=== PATIENT | male | born 1970 | race Caucasian/White ===

== ENCOUNTER → 2018-11-22 | Day surgery (SDC) | payer BC ==
[~2018-11-22] MED LIST: ACETAMINOPHEN 325 MG TABLET PO PRN; ALBUTEROL SULFATE 2.5 MG/3 ML NEBU. NEB PRN; ATROPINE 0.5 MG/5 ML DISP.SYRIN. IV PRN; BUPIVACAINE-EPI 0.25%-1:200000 MPF 30 ML VIAL. IJ ONE; BUPIVACAINE-EPI 0.25%-1:200000 MPF 30 ML VIAL. ONE; IV RINGERS SOLUTION,LACTATED 1,000 ML IV SCH; LIDOCAINE 1%/EPI 1:200,000 PF 30 ML VIAL. ONE; LIDOCAINE 2% PF Vial for OR 5 ML VIAL. ONE; MIDAZOLAM HCL PF 2 MG/2 ML VIAL. IV PRN; ONDANSETRON PF 4 MG/2 ML VIAL. IV PRN; ONDANSETRON PF 4 MG/2 ML VIAL. ONE; PHENOL ORAL SPRAY 177ML BOTTLE. MM PRN; PROPOFOL 40 ML IV ONE; SUMA100T3 PO; diphenhydrAMINE 50 MG/ML VIAL IV PRN
--- NOTE | 2018-11-22 10:49 | PDOC4 ---
Operative Report DATE 11/22/2018 Preop Diagnosis Posterior neck mass Post-op Diagnosis Same Operation Performed Excision of posterior neck mass Dictation: Patient is a 48-year-old male is complained of enlarging mass on the posterior neck. Procedure of excision was explained to the patient detail risk benefits were also discussed including bleeding infection turned to this procedure also discussed with patient seemed to understand and gave both verbal and written consent had procedure performed. Patient was taken to the minor his room placed in left lateral Cubist position his neck was prepped and draped usual sterile fashion using ChloraPrep and area over the mass was injected with quarter percent Marcaine with epinephrine once this was anesthetized incision was made with a 15 blade scalpel was carried down through the subcutaneous tissues down to the mass appeared to be a lipoma this was excised sharply with Metzenbaum scissors. Mass was sent to pathology approximate size 5 cm. Wound was then closed in 2 layers a deep layer running 3-0 Vicryl and skin was approximate for septic and a Monocryl Mastisol Steri-Strips and a large Band-Aid were applied. Patient was positioned in for his colonoscopy which we dictated a probation Surgeon Isauro ANESTHESIA PROPOSED: LOCAL Blood Loss 5 milliliters Specimen Posterior neck mass Complications None RACHELLE MUHAMMAD MD Nov 22, 2018 10:48
--- NOTE | 2018-11-22 10:50 | DISCH ---
DISCHARGE INSTRUCTIONS-DC Condition on Discharge Condition on Discharge: Stable Activity after Discharge Activity Instructions for Disc: Activity as tolerated Diet after Discharge Diet after Discharge: Regular Wound/Incision Care Other wound/incision instructi: May shower in 24 hours Contacting the after DC Call your doctor for: If your condition worsens Follow-Up Follow up with: Dr. Muhammad in 2 weeks RACHELLE MUHAMMAD MD Nov 22, 2018 10:50
[2018-11-22 11:16] VITALS: BP 116/76
--- NOTE | 2018-11-24 22:10 | PATHOLOGY ---
[facility] Accession Number: [id number] . 01 Material submitted: . PART A: neck - POSTERIOR NECK MASS. Modifiers: posterior PART B: colon - BX AT 20 CM - COLON. Modifiers: 20 CM . 01 Clinical history: . Neck mass . 02 Diagnosis: A. "Posterior neck mass", excision: - Mature adipose tissue consistent with lipoma. . B. "BX at 20 cm-colon", biopsy: - Tubular adenoma; no high grade dysplasia. . (CLW:mm; 11/24/2018) [facility] 11/24/2018 1546 Local . 02 Electronically signed: . Vashti Faulkner MD, Pathologist NPI- [id number] . 01 Gross description: . A. The specimen is received in formalin, labeled "Fredrick Naranjo, posterior neck mass", are few irregular fragments of yellow lobulated adipose tissue covered by a thin traore-white membrane measuring 5.2 x 3.5 x 2.7 cm. Serially sectioned to show a simmons-yellow homogeneous cut surface with no discrete hemorrhage or necrosis. Representatively submitted in A1-A2. . B. The specimen is received in formalin, labeled "Fredrick Naranjo, BX at 20 cm-colon", is an irregular segment of simmons soft tissue measuring 0.5 cm in greatest dimension. Entirely submitted in B1. ([facility]; 11/23/2018) [facility] 11/23/2018 2106 Local . 02 Pathologist provided ICD-10: D17.0, D12.6 . 02 CPT . 562058, 645184 Specimen Comment: A courtesy copy of this report has been sent to Specimen Comment: [phone], . Specimen Comment: Report sent to / DR ESCAMILLA Performed at: 01 [facility] [address] [facility] [address], [place] [id number] MD Severino Olguin MD Phone: [phone] Performed at: 02 [facility] [address] [place], [place] [id number] MD Osmar Constantino MD Phone: [phone]
== END ==
LOC: SURG 09:29
PROVIDERS: ATTEND Surgery
DX: Z12.11 Encounter for screening for malignant neoplasm of colon (principal); R22.1 Localized swelling, mass and lump, neck; D12.5 Benign neoplasm of sigmoid colon; F15.90 Other stimulant use, unspecified, uncomplicated; G43.909 Migraine, unspecified, not intractable, without status migrainosus; Z86.010 Personal history of colon polyps; Z90.49 Acquired absence of other specified parts of digestive tract; Z98.890 Other specified postprocedural states
CPT/HCPCS: 21552; 45380; 88304; 88305; J2405; J2704; J3490; J7120; J2001

== ENCOUNTER → 2020-10-04 | Outpatient (CLI) | payer OTHER ==
[2018-11-22 11:16] VITALS: BP 116/76
[~2020-10-04] MED LIST changes: -ACETAMINOPHEN 325 MG TABLET PO PRN; -ALBUTEROL SULFATE 2.5 MG/3 ML NEBU. NEB PRN; -ATROPINE 0.5 MG/5 ML DISP.SYRIN. IV PRN; -BUPIVACAINE-EPI 0.25%-1:200000 MPF 30 ML VIAL. IJ ONE; -BUPIVACAINE-EPI 0.25%-1:200000 MPF 30 ML VIAL. ONE; -IV RINGERS SOLUTION,LACTATED 1,000 ML IV SCH; -LIDOCAINE 1%/EPI 1:200,000 PF 30 ML VIAL. ONE; -LIDOCAINE 2% PF Vial for OR 5 ML VIAL. ONE; -MIDAZOLAM HCL PF 2 MG/2 ML VIAL. IV PRN; -ONDANSETRON PF 4 MG/2 ML VIAL. IV PRN; -ONDANSETRON PF 4 MG/2 ML VIAL. ONE; -PHENOL ORAL SPRAY 177ML BOTTLE. MM PRN; -PROPOFOL 40 ML IV ONE; -diphenhydrAMINE 50 MG/ML VIAL IV PRN
--- NOTE | 2020-10-04 10:14 | RAD ---
EXAM: Left chest sonogram. HISTORY: Pain. TECHNIQUE: Sonography imaging of the left chest wall at the site of pain was performed. COMPARISON: None. FINDINGS: There is no suspicious sonographic finding within the left chest wall at the site of report ed pain. No mass or fluid collection is seen. IMPRESSION: Unremarkable sonographic imaging of the left chest wall at the site of reported pain. On Site Manager ss-sectional imaging can be performed if there is concern for a sonographically occult etiology. Electronically signed by: Viola Granger MD (10/04/2020 10:12 AM) [id number]
--- NOTE | 2020-10-04 10:36 | RAD ---
EXAM: Chest and left ribs, 4 views. HISTORY: Pain. COMPARISON: None. FINDINGS: A frontal view of the chest and 3 views of the left ribs are obtained. There is no infiltra te, pleural effusion or pneumothorax. The heart is normal in size. There is no suspicious osseous les ion. There is no acute fracture. IMPRESSION: No acute pulmonary or osseous finding. Electronically signed by: Viola Granger MD (10/04/2020 10:33 AM) [id number]
== END ==
LOC: US 09:31
PROVIDERS: ATTEND Family Medicine
DX: R07.89 Other chest pain (principal)
CPT/HCPCS: 71101; 76882